=== PATIENT | female | born 1985 | race African-American/Black ===

== ENCOUNTER 2024-08-19 13:22 | Emergency (ER) | payer OTHER ==
[2024-08-19 13:36] VITALS: RESP 18; BMI 21.7
[2024-08-19] MEDS ORDERED: ACETAMINOPHEN INJECTION 100 ML ONE (14:57)
[2024-08-19] MEDS ORDERED: ALBUTEROL SO4 2.5/IPRATROPIUM 0.5 INH SOL 3 ML VIAL.NEB. NEB ONE ×2 (15:00→15:27)
[2024-08-19] MEDS: ACETAMINOPHEN 1000 MG/100 ML BAG IVPB ONE (15:16)
[2024-08-19] MEDS: ALBUTEROL SO4 2.5/IPRATROPIUM 0.5 INH SOL 3 ML VIAL.NEB. NEB ONE (15:16)
[2024-08-19] MEDS ORDERED: DEXAMETHASONE SOD PHOSPHATE 10 MG/1 ML VIAL ONE (15:28)
[2024-08-19 15:32] LABS: VENOUS BASE EXCESS 0.8 mmol/L (-2-2); VENOUS O2 SATURATION 85.1 % (70-80); VENOUS PCO2 38.3 mmHg (38-52); VENOUS PH 7.432 (7.310-7.410)
[2024-08-19] MEDS: DEXAMETHASONE SOD PHOSPHATE 10 MG/1 ML VIAL IVPUSH ONE (15:37)
[2024-08-19 16:20] LABS: BASO % 0.8 % (0-2.0); EOS % 0.3 % (0-4.5); HEMATOCRIT 33.4 % (32.4-45.2); HEMOGLOBIN 11.5 GM/dL (10.7-15.3); LYMPH % 39.2 % (8-40); MCH 34.2 pg (25.7-33.7); MCHC 34.4 g/dl (32.0-36.0); MEAN CELL VOLUME 99.4 fl (80-96); MEAN PLT VOLUME 7.2 fl (7.5-11.1); NEUT % 52.7 % (42.8-82.8); PLATELET COUNT 219 10^3/uL (134-434); RBC 3.36 M/mm3 (3.60-5.2); RDW 13.6 % (11.6-15.6); WHITE BLOOD COUNT 6.6 K/mm3 (4.0-10.0)
[2024-08-19 16:39] LABS: POTASSIUM 3.8 mmol/L (3.5-5.1)
[2024-08-19 16:41] LABS: ALBUMIN 3.8 g/dl (3.4-5.0); CALCIUM 9.3 mg/dL (8.5-10.1)
[2024-08-19 16:42] LABS: BLOOD UREA NITROGEN 11.1 mg/dL (7-18)
[2024-08-19 16:45] LABS: CREATININE 0.8 mg/dL (0.55-1.3)
[2024-08-19 16:46] LABS: BILIRUBIN,TOTAL 0.8 mg/dL (0.2-1); TOT PROT 7.8 g/dl (6.4-8.2)
[2024-08-19 17:29] VITALS: BP 142/95; PULSE 91; TEMP 98.7
== END 2024-08-19 19:00 | disposition home or self-care (01) ==
LOC: JER 13:22
PROC: 3E033NZ Introduction of Analgesics, Hypnotics, Sedatives into Peripheral Vein, Percutaneous Approach (ICD-10-PCS; principal; 2024-08-19)
PROC: 3E033GC Introduction of Other Therapeutic Substance into Peripheral Vein, Percutaneous Approach (ICD-10-PCS; 2024-08-19)
PROC: 3E0F7GC Introduction of Other Therapeutic Substance into Respiratory Tract, Via Natural or Artificial Opening (ICD-10-PCS; 2024-08-19)
DX: R06.02 Shortness of breath (principal); J45.901 Unspecified asthma with (acute) exacerbation; R05.9 Cough, unspecified; R09.81 Nasal congestion; Z20.822 Contact with and (suspected) exposure to COVID-19
CPT/HCPCS: 0241U-QW; 36415; 71045-TC-FY; 80053; 82803; 85025; 99284-25; J0131; J1100